=== PATIENT | female | born 1975 | race African-American/Black ===

== ENCOUNTER 2025-01-09 08:49 | Emergency (ER) | payer MEDICARE, SELFPAY ==
[2025-01-09 09:07] VITALS: BP 160/92; PULSE 61; RESP 16; TEMP 36.2; O2SAT 100
--- NOTE | 2025-01-09 09:59 | ED_ITS ---
HPI - URI/Sore Throat General Chief Complaint: Upper Respiratory Infection Stated Complaint: pain in eyes/swollen legs and feet Time Seen by Provider: 01/09/25 09:09 Source: patient and RN notes reviewed Mode of arrival: ambulatory Limitations: no limitations History of Present Illness HPI Narrative: 49-year-old female patient presents today with a 2 week history of sinus pressure, nasal congestion, chest pressure, cough, and mild shortness of breath with exertion. She also reports an intermittent fever with a T-max of 102?. Reports the fever has only been present for 3 days through the duration of her illness. She did a home COVID that was negative. She has tried Benadryl, Coricidin, cough drops without improvement. No history of asthma or COPD, but has used an albuterol inhaler in the past when ill. Related Data Allergies Allergy/AdvReac Type Severity Reaction Status Date / Time No Known Allergies Allergy Verified 01/09/25 09:25 [facility] Past Medical History Medical History (Updated 01/09/25 @ 10:26 by Lou Marrufo, [facility], ) History of brain tumor Surgical History Surgical History (Updated 01/09/25 @ 10:26 by Lou Marrufo, [facility], ) H/O: hysterectomy Social History Social History (Updated 01/09/25 @ 10:26 by Lou Marrufo, [facility], ) Smoking status: Current every day smoker Tobacco type: cigarettes Comments At time of signature, I have reviewed and agree with nursing past medical, surgical, social and family history unless otherwise noted. Please see nursing chart for further information. There is no relevant family history pertinent to the presenting complaint Exam Narrative: GENERAL: Mildly ill-appearing, well-nourished, and in no acute distress. HEAD: Normocephalic, atraumatic. EYES: EOMI. No redness or drainage. Conjunctivae normal. ENT: Mucous membranes pink and moist. Nares congested. No rhinorrhea. Bilateral frontal and maxillary sinus tenderness. TMs normal bilaterally. Throat normal. Uvula midline. NECK: Normal AROM. Supple. No lymphadenopathy. CHEST: No respiratory distress. Clear to auscultation. HEART: Regular rate and rhythm. No murmur appreciated. EXTREMITIES: Normal range of motion. No edema. SKIN: Warm, dry, no rash. Capillary refill normal. Normal skin turgor. NEURO: No focal deficits. Alert and oriented x3. Gait steady. PSYCH: Normal affect. No signs of depression or anxiety. Course Course Level of Care: Express Care Visit Vital Signs Vital signs: Vital Signs Temperature 97.1 F L 01/09/25 09:07 Pulse Rate 61 01/09/25 09:07 Respiratory Rate 16 01/09/25 09:07 Blood Pressure 160/92 H 01/09/25 09:07 Pulse Oximetry 100 01/09/25 09:07 Oxygen Delivery Room Air 01/09/25 09:07 Temperature 97.1 F L 01/09/25 09:07 Pulse Rate 61 01/09/25 09:07 Respiratory Rate 16 01/09/25 09:07 Blood Pressure 160/92 H 01/09/25 09:07 Pulse Oximetry 100 01/09/25 09:07 Oxygen Delivery Room Air 01/09/25 09:07 Reviewed MDM - URI/Sore Throat MDM Narrative Medical decision making narrative: 49-year-old female patient presents today with a 2 week history of sinus pressure, nasal congestion, chest pressure, cough, and mild shortness of breath with exertion. She also reports an intermittent fever with a T-max of 102?. Reports the fever has only been present for 3 days through the duration of her illness. She did a home COVID that was negative. She has tried Benadryl, [place] ricidin, cough drops without improvement. Upon exam, patient has some nasal congestion, tenderness in the frontal and maxillary sinuses. Lung auscultation normal. Due to duration of illness, HPI, and exam, patient will be treated with Augmentin for sinusitis. Prescription for albuterol inhaler and benzonatate also given for cough and occasional shortness of breath. Patient agrees with plan. Vital signs stable. Anticipatory guidance given. Differential Diagnosis Differential diagnosis: Likely upper respiratory infection, sinusitis, viral infection, bronchitis and other (Pneumonia) Critical Care Time Critical Care Time Critical Care Time: No Discharge Plan Discharge Clinical Impression: Bronchitis Sinusitis Qualifiers: Sinusitis location: unspecified location Chronicity: acute Recurrence: non- recurrent Qualified Code(s): J01.90 - Acute sinusitis, unspecified Patient Disposition: Home Condition: Stable Instructions: Antibiotic Form, Sinusitis (ED), Acute Bronchitis (ED) Additional Instructions: Please take all medications as prescribed. Schedule a follow-up visit with your PCP in 3 days if symptoms are not improving. Go to the ER if symptoms worsen. Your blood pressure was elevated above 120/80 today at Urgent Care. This puts you above the threshold for follow up. Please schedule a followup visit with your personal physician as soon as possible, for further evaluation and treatment. Even blood pressure exceeding 120/80 may indicate pre-hypertension. Patient Language: Greek Prescriptions: New benzonatate 200 mg capsule 200 mg PO TID PRN (Reason: cough) Qty: 20 0RF albuterol sulfate 90 mcg/actuation HFA aerosol inhaler 2 inh inhalation Q4-6H PRN (Reason: shortness of breath or wheezing) Qty: 8.5 0RF amoxicillin-pot clavulanate 875-125 mg tablet 1 tablet PO Q12H 10 Days Qty: 20 0RF (DME) Breathe[employer]ite MDI Spacer Spacer See Rx Instructions .ROUTE .MEDSUPPLY Qty: 1 0RF Rx Instructions: As directed Follow-up/Referrals: Mateo,Claudia Ramirez, [facility] [Primary Care Provider, Unknown] Stand Alone Forms: Work/School Release IP Time of Disposition: 09:43
== END 2025-01-09 09:10 | disposition home or self-care (01) ==
PROVIDERS: Emergency Provider Nurse Practitioner; PCP Registered Nurse
DX: J40 Bronchitis, not specified as acute or chronic (principal); J01.90 Acute sinusitis, unspecified; F17.210 Nicotine dependence, cigarettes, uncomplicated; Z86.011 Personal history of benign neoplasm of the brain
CPT/HCPCS: 99203; G0463